=== PATIENT | male | born 2000 | race Caucasian/White ===

== ENCOUNTER 2022-06-01 18:55 | Emergency (ER) | payer MEDICAID ==
[~2022-06-01] VITALS: Ht 177.8 cm; Wt 92.5 kg
== END 2022-06-01 21:40 | disposition home or self-care (01) ==
LOC: ED 18:55
PROC: 0RSJXZZ Reposition Right Shoulder Joint, External Approach (ICD-10-PCS; principal; 2022-06-01)
DX: S43.014A Anterior dislocation of right humerus, initial encounter (principal); X58.XXXA Exposure to other specified factors, initial encounter
CPT/HCPCS: 23650; 73030; 99152; 99153; 99283-25